=== PATIENT | male | born 1965 | race Caucasian/White ===

== ENCOUNTER → 2016-10-09 | Outpatient (CLI) | payer BC ==
[~2016-10-09] MED LIST: ASCO10003 PO; OMEGCAP2 PO; PARO1TAB27 PO
--- NOTE | 2016-10-09 15:28 | DIAGNOSTIC IMAGING REPORT ---
LUMBAR SPINE MRI HISTORY: Low back pain. Lumbar disc herniation. TECHNIQUE: Multiplanar multisequence MRI of the lumbar spine was performed without the use of contrast. COMPARISON: None. FINDINGS: For the purpose of the report the L5-S1 disc space will be located on axial image 24 of 26. Alignment and curvature intact. No fracture or subluxation. There are 1 cm hemangiomas at T12 and L4. There is mild disc space narrowing and disc desiccation at L4-L5. There is also mild disc space narrowing at T11-T12. The conus terminates at the T12-L1 disc space. The visualized retroperitoneal soft tissues are unremarkable. L1-L2: No significant central canal or neural foraminal narrowing. L2-L3: No significant central canal or neural foraminal narrowing. L3-L4: No significant central canal or neural foraminal narrowing. L4-L5: There is a central disc extrusion which measures 9 x 7 mm and demonstrates minimal inferior ligamentous migration. This results in mild to moderate central canal narrowing and abuts the bilateral transiting nerve roots. L5-S1: No significant central canal or neural foraminal narrowing. IMPRESSION: 1. At L4-L5 there is a central disc extrusion which measures 9 x 7 mm and demonstrates minimal inferior ligamentous migration. This results in mild to moderate central canal narrowing and abuts the bilateral transiting nerve roots. 2. No additional disc herniations or central canal narrowing identified. Electronically signed by: Skinny Weldon M.D. 10/09/2016 3:27 PM Dictated Date/Time: 10/09/2016 3:19 PM
== END | disposition home or self-care (01) ==
LOC: C.MRIBC 14:40
PROVIDERS: ATTEND Physical Medicine & Rehabilitation
DX: M51.26 Other intervertebral disc displacement, lumbar region (principal)

== ENCOUNTER → 2016-10-19 | Day surgery (SDC) | payer BC ==
[2016-10-05 14:35] VITALS: Ht 182.9 cm; Wt 109.1 kg
[~2016-10-19] VITALS: Ht 182.9 cm; Wt 109.1 kg
[~2016-10-19] MED LIST changes: +IOPAMIDOL INJ 61% 15 ML VIAL ONE; +LIDOCAINE HCL 1% MPF 5 ML VIAL ONE; +SODIUM CHLORIDE 0.9% INJ 10 ML VIAL ONE
--- NOTE | 2016-10-19 14:53 | History & Physical Bridge - [place] ---
H&P Re-Evaluation Bridge Note: I have examined the patient, reviewed the History & Physical and in the interval since the performance of the History & Physical I have noted the following changes of clinical significance: No changes noted
--- NOTE | 2016-10-19 15:18 | Discharge Instructions ---
Discharge Instructions Visit Reason for Visit: Low Back Pain Discharge Discharge Diagnosis / Problem: Bilateral leg pain Discharge Goals Goal(s): Decrease discomfort, Improve function Activity Recommendations Activity Limitations: resume your previous activity Anesthesia . Post Anesthesia Instructions: If you have had General Anesthesia or IV Sedation: * Do not drive today. * Resume driving when surgeon permits. * Do not make important decisions or sign legal documents today. * Call surgeon for: 1. Temperature elevations greater than 101 degrees F. 2. Uncontrollable pain. 3. Excessive bleeding. 4. Persistent nausea and vomiting. 5. Medication intolerance (nausea, vomiting or rash). * For nausea and vomiting use only clear liquids such as: tea, soda, bouillon until nausea subsides, then gradually increase diet as tolerated. * If you have any concerns or questions, call your surgeon's office. If physician is unavailable and it is an emergency, call 911 or go to the nearest emergency room. . Diet Recommendations Recommended Home Diet: no limitations Procedures Procedures Performed: Lumbar Epidural Steroid Injection Pending Studies Studies pending at discharge: no Medical Emergencies . Who to Call and When: Medical Emergencies: If at any time you feel your situation is an emergency, please call 911 immediately. . Non-Emergent Contact Non-Emergency issues call your: Specialist . . "Provider Documentation" section prepared by Hubert Irizarry.
[2016-10-19 15:20] VITALS: BP 137/79; PULSE 73; TEMP 36.9; O2SAT 94
--- NOTE | 2016-10-19 16:02 | OPERATIVE REPORT ---
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 POSTOPERATIVE DIAGNOSES: Same. PROCEDURE: Left paramedian L5-S1 intralaminar epidural steroid injection under fluoroscopic guidance. SURGEON: Dr. Hubert Irizarry. INDICATIONS: The patient is a 50-year-old white male who has had significant pain in the back radiating down the legs that has not responded to conservative measures including a prednisone taper on a long-term basis. He presents today for an epidural injection to provide him with relief as he is scheduled to leave for [place] and would hope the pain would be under better control to allow him to enjoy the trip and be more functional again. PHYSICAL EXAMINATION: Pleasant male seated comfortably. He has an easier time moving from a sit to stand position but has limited forward flexion with pain inhibition with straight leg testing and intact sensation. No focal weakness. Pain inhibition is present. CONSENT: Verbal and written consent are reviewed with the patient. Risks and benefits were reviewed. Risks include but are not limited to epidural abscess, epidural hematoma, allergic reaction, dural puncture. The patient wishes to proceed. PROCEDURE: The patient was taken back to the special procedures room of the [facility] where he was seated in a prone position. Fluoroscope was used to identify intralaminar space. Backside was cleansed with Betadine x3 and a dry sterile dressing was applied. Overlying skin of the interlaminar space at L5-S1 on the right paramedian side was then anesthetized with 4 mL of lidocaine 1% with a 25 gauge 1.5-inch needle. A 22-gauge 3-1/2 inch Tuohy needle was then directed down towards the intralaminar space. It was advanced under lateral fluoroscopic guidance to a depth of just at 9 cm and he underwent injection after negative aspiration of 1 mL of Isovue 300 contrast which demonstrated epidural uptake pattern. This was confirmed with both AP and lateral views. He then underwent injection after negative aspiration of 40 mg of Depo-Medrol, 4 mL of preservative free sodium chloride. Injection was well tolerated. DISPOSITION: 1. The patient is taken out into the discharge recovery area where he will be discharged home once discharge criteria have been met. 2. Follow up in the [facility] office in 2-4 weeks. I attest to the content of the Intraoperative Record and any orders documented therein. Any exceptio ns are noted below.
== END | disposition home or self-care (01) ==
LOC: X.SURG 14:15
PROVIDERS: ATTEND Physical Medicine & Rehabilitation
DX: M51.26 Other intervertebral disc displacement, lumbar region (principal); M54.16 Radiculopathy, lumbar region

== ENCOUNTER → 2017-10-19 | Outpatient (CLI) | payer OTHER ==
[~2017-10-19] MED LIST changes: -IOPAMIDOL INJ 61% 15 ML VIAL ONE; -LIDOCAINE HCL 1% MPF 5 ML VIAL ONE; -SODIUM CHLORIDE 0.9% INJ 10 ML VIAL ONE
[2017-10-19 10:16] LABS: ALBUMIN 4.5 gm/dl (3.4-5.0); ALT/SGPT 50 U/L (12-78); BLOOD UREA NITROGEN 14 mg/dl (7-18); CALCIUM 9.6 mg/dl (8.5-10.1); CARBON DIOXIDE 29 mmol/L (21-32); CHOLESTEROL 268 mg/dl (0-200); CREATININE 1.07 mg/dl (0.60-1.40); GLUCOSE 106 mg/dl (70-99); POTASSIUM 4.1 mmol/L (3.5-5.1); SODIUM 137 mmol/L (136-145)
[2017-10-19 10:26] LABS: ALKALINE PHOSPHATASE 72 U/L (45-117); AST/SGOT 28 U/L (15-37); LDL CHOLESTEROL CALCULATED 185 mg/dl; TOTAL PROTEIN 7.9 gm/dl (6.4-8.2)
== END | disposition home or self-care (01) ==
LOC: C.LAB 08:38
PROVIDERS: ATTEND Internal Medicine
DX: Z82.49 Family history of ischemic heart disease and other diseases of the circulatory system (principal)